=== PATIENT | female | born 1975 | race Caucasian/White ===

== ENCOUNTER 2024-01-27 08:26 | Emergency (ER) | payer BC ==
[2024-01-27 08:31] VITALS: BP 126/78; PULSE 58; RESP 20; TEMP 97.8; BMI 26.6
[2024-01-27] MEDS ORDERED: DEXAMETHASONE SOD PHOSPHATE 10 MG/1 ML VIAL ONE (09:26)
[2024-01-27] MEDS: DEXAMETHASONE SOD PHOSPHATE 10 MG/1 ML VIAL PO ONE (09:29)
== END 2024-01-27 09:33 | disposition home or self-care (01) ==
LOC: JERFT 08:26
DX: L23.7 Allergic contact dermatitis due to plants, except food (principal); R21 Rash and other nonspecific skin eruption
CPT/HCPCS: 99283-25; J1100

== ENCOUNTER 2024-02-01 12:38 | Emergency (ER) | payer BC ==
[2024-02-01 12:51] VITALS: BP 108/73; PULSE 84; RESP 16; TEMP 98.6; BMI 26.6
[2024-02-01] MEDS ORDERED: hydrOXYzine PAMOATE 25 MG CAPSULE (FP) PO ONE (14:04)
[2024-02-01] MEDS ORDERED: FAMOTIDINE 20 MG TABLET ONE (14:04)
[2024-02-01] MEDS ORDERED: predniSONE 20 MG TABLET (UD) ONE (14:04)
[2024-02-01] MEDS: FAMOTIDINE 20 MG TABLET PO ONE (14:08)
[2024-02-01] MEDS: predniSONE 20 MG TABLET (UD) PO ONE ×2 (14:08)
[2024-02-01] MEDS: hydrOXYzine PAMOATE 25 MG CAPSULE (FP) PO ONE (14:08)
== END 2024-02-01 14:26 | disposition home or self-care (01) ==
LOC: JERFT 12:38
DX: R21 Rash and other nonspecific skin eruption (principal)
CPT/HCPCS: 99283-25